=== PATIENT | female | born 1990 | race African-American/Black ===

== ENCOUNTER 2019-05-31 15:44 | Emergency (ER) | payer OTHER ==
[2019-05-31 15:55] VITALS: BP 123/77; PULSE 89; TEMP 98.9; BMI 29.9
--- NOTE | 2019-05-31 16:09 | PDOC ---
Rapid Medical Evaluation Chief Complaint: ,Possible Time Seen by Provider: 05/31/19 15:52 Medical Evaluation: Allergies Allergy/AdvReac Type Severity Reaction Status Date / Time No Known Allergies Allergy Verified 12/28/14 18:16 Vital Signs Temp Pulse Resp BP Pulse Ox 98.9 F 89 18 123/77 100 05/31/19 15:52 05/31/19 15:52 05/31/19 15:52 05/31/19 15:52 05/31/19 15:52 05/31/19 16:05 I have performed a brief in-person evaluation of this patient. The patient presents with a chief complaint of:1st trimester w/ abd pain and n/v Pertinent physical exam findings:stable I have ordered the following:labs/US The patient will proceed to the ED for further evaluation. Discharge Disposition - Diagnosis Abdominal pain affecting - Discharge Dispostion Condition at time of disposition: Stable - Referrals - Patient Instructions - Post Discharge Activity
[2019-05-31 17:29] LABS: BASO % 0.5 % (0-2.0); EOS % 0.2 % (0-4.5); HEMATOCRIT 39.2 % (32.4-45.2); HEMOGLOBIN 12.9 GM/dL (10.7-15.3); LYMPH % 18.5 % (8-40); MCH 24.9 pg (25.7-33.7); MCHC 32.9 g/dl (32.0-36.0); MEAN CELL VOLUME 75.7 fl (80-96); MEAN PLT VOLUME 7.8 fl (7.5-11.1); MONO % 6.7 % (3.8-10.2); NEUT % 74.1 % (42.8-82.8); PLATELET COUNT 292 K/MM3 (134-434); RBC 5.18 M/mm3 (3.60-5.2); RDW 14.2 % (11.6-15.6); WHITE BLOOD COUNT 7.4 K/mm3 (4.0-10.0)
[2019-05-31] MEDS ORDERED: ONDANSETRON 4 MG/2 ML VIAL IVPUSH ONE ×2 (17:29→21:18)
[2019-05-31] MEDS ORDERED: SODIUM CHLORIDE 1,000 ML IV STA (17:29)
--- NOTE | 2019-05-31 17:34 | PDOC ---
History of Present Illness <Doreen Helm - Last Filed: 05/31/19 18:02> - General History Source: Patient Exam Limitations: No Limitations - History of Present Illness Travel History: No Initial Comments: 05/31/19 17:30 HISTORY OF PRESENT ILLNESS: This is a 29-year-old woman is currently 6 weeks by dates with an LMP of 04/08/19 presents emergency for evaluation of vomiting for 2 weeks. Patient states she was on a cruise starting approximately 11 days ago when she began to feel nauseous but believed it was due to motion sickness. She did not take any medication tried homeopathic therapies such as delgado and pressure-point stimulation which was minimally effective. Patient reports she was able to eat and drink without difficulty and was able to eat during that time. After returning approximately 4 days ago patient reports symptoms have gotten worse and now she is currently unable to tolerate any by mouth's including water. Patient had an appointment with her OB today for initial visit became to the ER instead given severity of her symptoms. She denies fevers, chills, diarrhea, vaginal bleeding, vaginal discharge, dysuria, hematuria or constipation. Recent travel to multiple [facility]- cruise. No sick contacts. PAST MEDICAL HISTORY: Denies past medical history SURGICAL HISTORY: Denies ALLERGIES: No known drug allergies REVIEW OF SYSTEMS General/Constitutional: Denies fever or chills. Denies weakness, weight change. HEENT: Denies change in vision. Denies ear pain or discharge. Denies sore throat. Cardiovascular: Denies chest pain or shortness of breath. Respiratory: Denies cough, wheezing, or hemoptysis. Gastrointestinal: see HPI Genitourinary: Denies dysuria, frequency, or change in urination. Musculoskeletal: Denies joint or muscle swelling or pain. Denies neck or back pain. Skin and breasts: Denies rash or easy bruising. Neurologic: Denies headache, vertigo, loss of consciousness, or loss of sensation. Psychiatric: Denies depression or anxiety. Endocrine: Denies increased thirst. Denies abnormal weight change. Hematologic/Lymphatic: Denies anemia, easy bleeding, or history of blood clots. Allergic/Immunologic: Denies hives or skin allergy. Denies latex allergy. PHYSICAL EXAM General Appearance: Well-appearing, appropriately dressed. No apparent distress , no intoxication. Respiratory/Chest: Lungs CTAB. No shortness of breath, chest tenderness, respiratory distress, accessory muscle use. No crackles, rales, rhonchi, stridor , wheezing, dullness Cardiovascular: RRR. S1, S2. No JVD, murmur, bradycardia, tachycardia. Vascular Pulses: Dorsalis-Pedis (R): 2+, Dorsalis-Pedis (L): 2+ Gastrointestinal/Abdominal: Normal bowel sounds. Abdomen soft, non-distended. No tenderness or rebound tenderness. No organomegaly, pulsatile mass, guarding, hernia, hepatomegaly, splenomegaly. Neurologic: speech language specialist II-XII intact. Fully oriented, alert. Appropriate mood/affect. Motor strength 5/5. No appreciable EOM palsy, facial droop or sensory deficit. <Edilson Jang - Last Filed: 05/31/19 23:12> - General Chief Complaint: ,Possible Stated Complaint: 6 WK PREG / SICK / DR. 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 Time Seen by Provider: 05/31/19 15:52 Past History <Doreen Helm - Last Filed: 05/31/19 18:02> - Past Medical History Asthma: No Cancer: No Cardiac Disorders: No CVA: No COPD: No Diabetes: No HTN: No Seizures: No Thyroid Disease: No - Immunization History Immunization Up to Date: No - Suicide/Smoking/Psychosocial Hx Smoking History: Never smoked Have you smoked in the past 12 months: No Information on smoking cessation initiated: No Hx Alcohol Use: No Drug/Substance Use Hx: No Hx Substance Use Treatment: No <Edilson Jang - Last Filed: 05/31/19 23:12> - Past Medical History Allergies/Adverse Reactions: Allergies Allergy/AdvReac Type Severity Reaction Status Date / Time No Known Allergies Allergy Verified 12/28/14 18:16 Home Medications: Ambulatory Orders Azithromycin [Zithromax Z-BRAIN (5 DAYS) -] 250 mg PO ASDIR #6 tablet 12/28/14 Ondansetron [Zofran Odt -] 4 mg SL TID #21 od.tablet 05/31/19 *Physical Exam - Vital Signs Last Vital Signs Temp Pulse Resp BP Pulse Ox 98.9 F 89 18 123/77 100 05/31/19 15:52 05/31/19 15:52 05/31/19 15:52 05/31/19 15:52 05/31/19 15:52 <Doreen Helm - Last Filed: 05/31/19 18:02> - Vital Signs Last Vital Signs Temp Pulse Resp BP Pulse Ox 98.9 F 89 18 123/77 100 05/31/19 15:52 05/31/19 15:52 05/31/19 15:52 05/31/19 15:52 05/31/19 15:52 <Edilson Jang - Last Filed: 05/31/19 23:12> ED Treatment Course - LABORATORY CBC & Chemistry Diagram: 05/31/19 17:15 05/31/19 17:15 - ADDITIONAL ORDERS Additional order review: Laboratory Results 05/31/19 05/31/19 17:15 17:15 Sodium 137 Potassium 4.2 Chloride 104 Carbon Dioxide 25 Anion Gap 8 BUN 13.1 Creatinine 0.8 Est GFR (CKD-EPI)AfAm 115.47 Est GFR (CKD-EPI)NonAf 99.63 Random Glucose 90 Calcium 9.4 Total Bilirubin 0.9 AST 18 ALT 40 Alkaline Phosphatase 46 Total Protein 7.9 Albumin 4.0 Lipase 90 05/31/19 17:15 RBC 5.18 MCV 75.7 L MCHC 32.9 RDW 14.2 D MPV 7.8 D Neutrophils % 74.1 Lymphocytes % 18.5 D Monocytes % 6.7 Eosinophils % 0.2 D Basophils % 0.5 D <Doreen Helm - Last Filed: 05/31/19 18:02> - LABORATORY CBC & Chemistry Diagram: 05/31/19 17:15 05/31/19 17:15 <Edilson Jang - Last Filed: 05/31/19 23:12> Medical Decision Making - Medical Decision Making The patient was seen and evaluated in conjunction with midlevel provider under my direct supervision, ancillary studies were reviewed. I agree with the plan as outlined [employer] Suhail. HPI, workup/dispo as outlined. VS reviewed, wnl. labs and lytes/lipase normal TVUS with live IUP 8 weeks, small subchorio hematoma and fibroid. otherwise unremarkable. anticipate discharge, pcp followup, return precautions 05/31/19 18:02 <Doreen Helm - Last Filed: 05/31/19 18:02> - Medical Decision Making 05/31/19 17:25 A/P: 29-year-old woman with inability to tolerate by mouth's in first trimester of Likely hyperemesis gravidarum. Differential diagnosis includes but is not limited to infection, dehydration, electrolyte abnormality, gastroenteritis Transvaginal ultrasound as read by Dr. Richardson: Single viable intrauterine gestation at approximately 8 weeks 1 day. Small subchorionic implantation bleed. 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 heart rate 141 bpm. Labs and urine per rapid medical evaluation Normal saline 1 L IV bolus Zofran 4 mg IV 05/31/19 21:05 CBC is unremarkable Chemistries are unremarkable Beta hCG 113,463 Urinalysis notable for 4+ ketones and specific gravity of 1.037. No suggestion of infection. Patient reports she feels better and is requesting something to eat. Oral trial Reassess 05/31/19 22:02 After by mouth trial patient developed epigastric pain and mild nausea. Patient has not vomited. Zofran 4 mg IV now Maalox 30 mL orally Tylenol 1 g IV Continue lactated Ringer's Reassess <Edilson Jang - Last Filed: 05/31/19 23:12> *DC/Admit/Observation/Transfer <Doreen Helm - Last Filed: 05/31/19 18:02> - Discharge Dispostion Decision to Admit order: No <Edilosn Jang - Last Filed: 05/31/19 23:12> Diagnosis at time of Disposition: Hyperemesis gravidarum - Discharge Dispostion Disposition: HOME Condition at time of disposition: Fair - Prescriptions Prescriptions: Ondansetron [Zofran Odt -] 4 mg SL TID #21 od.tablet - Patient Instructions Additional Instructions: Take Tylenol 2 extra strength every 6 hours as needed for pain. Take Zofran 4 mg placed under your tongue 3 times a day as needed for nausea. Keep your appointment with your OB tomorrow for reevaluation. Return to emergency department for any new or worsening symptoms. Thank you very much for choosing us to provide your emergent health care needs. - Post Discharge Activity Forms/Work/School Notes: Back to Work
[2019-05-31 17:58] LABS: BILIRUBIN,TOTAL 0.9 mg/dL (0.2-1); BLOOD UREA NITROGEN 13.1 mg/dL (7-18); CALCIUM 9.4 mg/dL (8.5-10.1); CREATININE 0.8 mg/dL (0.55-1.3); POTASSIUM 4.2 mmol/L (3.5-5.1); TOT PROT 7.9 g/dl (6.4-8.2)
[2019-05-31] MEDS ORDERED: ONDANSETRON 4 MG/2 ML VIAL ONE ×2 (18:03→21:22)
[2019-05-31 20:00] LABS: PH,URINE 5.5 (5.0-8.0); URINE APPEARANCE CLEAR; URINE BILIRUBIN 1+ (NEGATIVE); URINE COLOR DK YELLOW; URINE GLUCOSE (UA) NEGATIVE (NEGATIVE); URINE KETONE 4+ (NEGATIVE); URINE LEUK ESTERASE NEGATIVE (NEGATIVE); URINE NITRITE NEGATIVE (NEGATIVE); URINE PROTEIN TRACE (NEGATIVE)
[2019-05-31] MEDS ORDERED: LACTATED RINGERS SOLUTION 1,000 ML/1,000 ML INFUS.BAG IV SCH (20:00)
[2019-05-31] MEDS ORDERED: MAG HYDROX/AL HYDROX/SIMETH 30 ML UNIT-DOSE CUP PO ONE (21:50)
[2019-05-31] MEDS ORDERED: ACETAMINOPHEN 500 MG TABLET (FP) PO ONE (21:50)
[2019-05-31] MEDS ORDERED: ACETAMINOPHEN 325 MG TABLET (FP) ONE (21:57)
[2019-05-31] MEDS ORDERED: MAG HYDROX/AL HYDROX/SIMETH 30 ML UNIT-DOSE CUP ONE (21:57)
== END 2019-05-31 23:31 | disposition home or self-care (01) ==
LOC: JER 15:44
PROC: 3E0337Z Introduction of Electrolytic and Water Balance Substance into Peripheral Vein, Percutaneous Approach (ICD-10-PCS; principal; 2019-05-31)
PROC: 3E033GC Introduction of Other Therapeutic Substance into Peripheral Vein, Percutaneous Approach (ICD-10-PCS; 2019-05-31)
DX: O26.891 Other specified pregnancy related conditions, first trimester (principal); Z3A.01 Less than 8 weeks gestation of pregnancy; O21.0 Mild hyperemesis gravidarum
CPT/HCPCS: 36415; 76801-TC; 80053; 81003; 83690; 84702; 85025; 86850; 86900; 86901; 87086; 96361; 96374; 96376; 99282-25; J7030